=== PATIENT | female | born 1990 | race Two or more races ===

== ENCOUNTER 2023-03-29 12:36 | Emergency (ER) | payer SELFPAY ==
[~2023-03-29] VITALS: Ht 157.5 cm; Wt 71.7 kg
[2023-03-29 14:16] LABS: Urine Amorphous Crystal FEW /hpf (None Seen); Urine Bacteria FEW /hpf (None Seen); Urine Blood Negative /uL (Negative); Urine Clarity HAZY (Clear); Urine Color Yellow (Yellow); Urine Mucus FEW (None Seen); Urine Protein, UAD Negative (Negative); Urine Specific Gravity 1.022 (1.001-1.035); Urine Urobilinogen Normal (Negative); Urine WBC 5 /hpf (0 - 5); Urine pH 6.5 (5.0-8.0)
[2023-03-29 15:26] LABS: Albumin 4.3 g/dL (3.2-4.8); Alkaline Phosphatase 62 U/L (46-116); Anion Gap 6 (5-15); Aspartate Aminotransferase 9 U/L (13-40); BUN/Creatinine Ratio 13.5 (10.0-20.0); Bilirubin, Total 0.3 mg/dL (0.2-1.0); Blood Urea Nitrogen 7 mg/dL (9-23); Calcium 9.3 mg/dL (8.7-10.4); Carbon Dioxide 24 mmol/L (20-30); Chloride 105 mmol/L (98-107); Glucose 76 mg/dL (74-106); Lipase 49 U/L (12-53); Potassium 4.4 mmol/L (3.5-5.1); Sodium 135 mmol/L (136-145); Total Protein 6.7 g/dL (5.7-8.2)
[2023-03-29 15:28] LABS: Alanine Aminotransferase < 9 U/L (7-40)
[2023-03-29 15:29] LABS: Hematocrit 38.2 % (36.0-46.0); Hemoglobin 12.7 g/dL (12.2-16.2); Mean Corpuscular Hemoglobin 30.7 pg (28.0-32.0); Mean Corpuscular Hgb Conc. 33.2 g/dL (32.0-36.0); Mean Corpuscular Volume 92.4 fL (80.0-100.0); Red Blood Cells 4.13 10^6/uL (4.0-5.20); Red Cell Distribution Width 13.5 % (11.8-14.3); White Blood Cell 9.4 10^3/uL (4.4-10.8)
[2023-03-29 15:33] LABS: Basophils % (manual) 0 (0.0-2.0); Blast Cells 0; Metamyelocytes % 0; Myelocytes % 0; Promyelocytes % 0; Reactive Lymphocytes 0
[2023-03-29 15:41] VITALS: BP 110/54; PULSE 98; RESP 18; TEMP 98.1; O2SAT 100
[2023-03-29 16:08] LABS: Band Neutrophils % (manual) 7; Eosinophils % (manual) 1 (0-7); Lymphocytes % (manual) 19 (10.0-50.0); Monocytes % (manual) 2 (0-12); Platelet Estimate Adequate
== END 2023-03-29 15:42 | disposition home or self-care (01) ==
LOC: EDBD 12:36 → ER 12:36
DX: O26.892 Other specified pregnancy related conditions, second trimester (principal); R10.2 Pelvic and perineal pain; R10.12 Left upper quadrant pain; Z3A.20 20 weeks gestation of pregnancy
CPT/HCPCS: 36415; 76805; 80053; 81001; 81025; 83690; 84702; 85007; 85027

== ENCOUNTER 2023-07-26 06:55 | Inpatient (IN) | payer MEDICAID ==
[2023-07-26] VITALS (9 sets, daily range): BP systolic 91–107; BP diastolic 51–63; PULSE 72–115; RESP 16–18; TEMP 96.7–98; O2SAT 95–99
[~2023-07-26] VITALS: Ht 157.5 cm; Wt 81.2 kg
[2023-07-26] MEDS ORDERED: LACTATED RINGER'S 1,000 ML IV SCH ×2 (08:00→11:45)
[2023-07-26] MEDS: LACTATED RINGER'S 1,000 ML IV ONE ×2 (08:32→19:34)
[2023-07-26 08:34] LABS: Basophils # (auto) 0 10 ^3/uL (0-0.2); Basophils % (auto) 0.4 % (0.0-2.0); Eosinophils # (auto) 0 10 ^3/uL (0-0.8); Eosinophils % (auto) 0.4 % (0.0-7.0); Hematocrit 33.9 % (36.0-46.0); Hemoglobin 11.4 g/dL (12.2-16.2); Lymphocytes # (auto) 1.5 10 ^3/uL (0.4-5.4); Lymphocytes % (auto) 18.6 % (10.0-50.0); Mean Corpuscular Hemoglobin 28.6 pg (28.0-32.0); Mean Corpuscular Hgb Conc. 33.7 g/dL (32.0-36.0); Mean Corpuscular Volume 84.8 fL (80.0-100.0); Monocytes # (auto) 0.6 10 ^3/uL (0-1.3); Monocytes % (auto) 7.3 % (0.0-12.0); Neutrophils # (auto) 5.8 10 ^3/uL (1.6-8.6); Neutrophils % (auto) 73.3 % (37.0-80.0); Red Cell Distribution Width 14.5 % (11.8-14.3); White Blood Cell 7.9 10^3/uL (4.4-10.8)
[2023-07-26 08:50] LABS: Urine Bacteria FEW /hpf (None Seen); Urine Blood Negative /uL (Negative); Urine Clarity Turbid (Clear); Urine Color Light-Orange (Yellow); Urine Mucus FEW (None Seen); Urine Protein, UAD TRACE (Negative); Urine Specific Gravity 1.017 (1.001-1.035); Urine Urobilinogen Normal (Negative); Urine WBC 10 /hpf (0 - 5)
[2023-07-26 08:54] LABS: Alanine Aminotransferase 40 U/L (7-40); Aspartate Aminotransferase 34 U/L (13-40); Bilirubin, Total 0.5 mg/dL (0.2-1.0); Total Protein 6.4 g/dL (5.7-8.2)
[2023-07-26 08:55] LABS: Chloride 107 mmol/L (98-107); Sodium 136 mmol/L (136-145)
[2023-07-26 08:57] LABS: Anion Gap 5 (5-15); Carbon Dioxide 24 mmol/L (20-30)
[2023-07-26 08:58] LABS: Calcium 9.4 mg/dL (8.5-10.1)
[2023-07-26 09:03] LABS: Alkaline Phosphatase 172 U/L (46-116); BUN/Creatinine Ratio 10.9 (10.0-20.0); Blood Urea Nitrogen 7 mg/dL (9-23); Glucose 80 mg/dL (74-106)
[2023-07-26 09:07] LABS: INR 0.92 (0.9-1.15); Partial Thromboplastin Time 24.8 SEC (24.5-34.5); Prothrombin Time 9.8 sec (9.3-11.8)
[2023-07-26] MEDS: ceFAZolin 2 GM/D5W50ml 50 ML IV ONE (12:16)
[2023-07-26] MEDS ORDERED: fentaNYL CITRATE 100 MCG/2 ML VL ONE (13:00)
[2023-07-26] MEDS ORDERED: MORPHINE SULF PF 5 MG/10 ML VIAL ONE (13:00)
[2023-07-26] MEDS ORDERED: ePHEDrine SULFATE 50 MG/ML AMP ONE (13:12)
[2023-07-26] MEDS ORDERED: PHENYLEPHRINE HCL 10 MG/ML VL ONE (13:12)
[2023-07-26] MEDS ORDERED: OXYTOCIN 10UNIT/ML 1ML VIAL ONE ×2 (13:17→13:26)
[2023-07-26] MEDS ORDERED: NALOXONE HCL 0.4 MG/ML VIAL IV PRN (14:15)
[2023-07-26] MEDS ORDERED: ONDANSETRON HCL 4 MG/2 ML VIAL IV PRN ×2 (14:15→17:15)
[2023-07-26] MEDS ORDERED: HYDROmorphone HCL 2 MG/ML VL/or syr IV PRN (14:15)
[2023-07-26] MEDS ORDERED: diphenhdrAMINE HCL 50 MG/1 ML VL IV PRN (14:15)
[2023-07-26] MEDS: KETOROLAC TROMETH 30 MG/ML 1ML VIAL IV PRN (16:16)
[2023-07-26] MEDS ORDERED: ACETAMINOPHEN IV 1000 MG/100ML (10MG/ML) IV PRN (17:00)
[2023-07-26] MEDS: ACETAMINOPHEN IV 1000 MG/100ML (10MG/ML) IV PRN (18:30)
[2023-07-26 18:31] LABS: Basophils # (auto) 0 10 ^3/uL (0-0.2); Basophils % (auto) 0.3 % (0.0-2.0); Eosinophils # (auto) 0 10 ^3/uL (0-0.8); Eosinophils % (auto) 0.1 % (0.0-7.0); Hematocrit 32.2 % (36.0-46.0); Hemoglobin 10.9 g/dL (12.2-16.2); Lymphocytes # (auto) 1.1 10 ^3/uL (0.4-5.4); Lymphocytes % (auto) 9.8 % (10.0-50.0); Mean Corpuscular Hemoglobin 28.3 pg (28.0-32.0); Mean Corpuscular Hgb Conc. 33.8 g/dL (32.0-36.0); Mean Corpuscular Volume 83.6 fL (80.0-100.0); Monocytes # (auto) 0.6 10 ^3/uL (0-1.3); Monocytes % (auto) 5.4 % (0.0-12.0); Neutrophils # (auto) 9.1 10 ^3/uL (1.6-8.6); Neutrophils % (auto) 84.4 % (37.0-80.0); Nucleated Red Blood Cells % 0.1 %; Red Blood Cells 3.85 10^6/uL (4.0-5.20); Red Cell Distribution Width 14.2 % (11.8-14.3); White Blood Cell 10.8 10^3/uL (4.4-10.8)
[2023-07-26] MEDS ORDERED: CEPH500C PO (19:25)
[2023-07-26] MEDS ORDERED: HYDR-4902 PO (19:25)
[2023-07-26] MEDS ORDERED: IBUP-1455 PO (19:25)
[2023-07-26] MEDS: ceFAZolin 1GM/50ML 50 ML IV SCH (19:43)
[2023-07-27] VITALS (18 sets, daily range): BP systolic 97–113; BP diastolic 43–88; PULSE 85–108; RESP 16–18; TEMP 97.7–98.4; O2SAT 94–97
[2023-07-27] MEDS: LACTATED RINGER'S 1,000 ML IV SCH (01:03)
[2023-07-27 06:05] LABS: Basophils # (auto) 0 10 ^3/uL (0-0.2); Basophils % (auto) 0.2 % (0.0-2.0); Eosinophils # (auto) 0 10 ^3/uL (0-0.8); Eosinophils % (auto) 0.4 % (0.0-7.0); Hematocrit 28.9 % (36.0-46.0); Hemoglobin 9.8 g/dL (12.2-16.2); Lymphocytes % (auto) 12.8 % (10.0-50.0); Mean Corpuscular Hemoglobin 28.6 pg (28.0-32.0); Mean Corpuscular Hgb Conc. 33.8 g/dL (32.0-36.0); Mean Corpuscular Volume 84.5 fL (80.0-100.0); Monocytes # (auto) 0.7 10 ^3/uL (0-1.3); Monocytes % (auto) 8.5 % (0.0-12.0); Neutrophils # (auto) 6.1 10 ^3/uL (1.6-8.6); Neutrophils % (auto) 78.1 % (37.0-80.0); Nucleated Red Blood Cells % 0.1 %; Red Blood Cells 3.41 10^6/uL (4.0-5.20); Red Cell Distribution Width 14.1 % (11.8-14.3); White Blood Cell 7.8 10^3/uL (4.4-10.8)
[2023-07-27 07:07] LABS: RPR Non Reactive (Non Reactive)
[2023-07-27] MEDS: HYDROcodone-ACET 5/325MG TAB PO PRN (11:38)
[2023-07-27] MEDS: HYDROcodone-ACET 10/325MG TAB PO PRN (15:54)
[2023-07-27] MEDS: IBUPROFEN 800 MG TAB PO ONE (21:31)
[2023-07-27] MEDS: IBUPROFEN 800 MG TAB PO PRN (21:31)
[2023-07-27] MEDS: SIMETHICONE 80 MG CHEWABLE TABLET PO SCH (22:00)
[2023-07-27] MEDS: DOCUSATE SOD 100 MG CAP PO SCH (22:00)
[2023-07-28 03:00] VITALS: BP 100/60; PULSE 89; RESP 16; TEMP 98; O2SAT 98
[2023-07-28 07:08] LABS: Basophils # (auto) 0 10 ^3/uL (0-0.2); Basophils % (auto) 0.3 % (0.0-2.0); Eosinophils # (auto) 0.1 10 ^3/uL (0-0.8); Eosinophils % (auto) 0.5 % (0.0-7.0); Hematocrit 31.1 % (36.0-46.0); Hemoglobin 10.7 g/dL (12.2-16.2); Lymphocytes # (auto) 1.4 10 ^3/uL (0.4-5.4); Lymphocytes % (auto) 13.5 % (10.0-50.0); Mean Corpuscular Hemoglobin 29.1 pg (28.0-32.0); Mean Corpuscular Hgb Conc. 34.2 g/dL (32.0-36.0); Monocytes # (auto) 0.7 10 ^3/uL (0-1.3); Neutrophils # (auto) 8.1 10 ^3/uL (1.6-8.6); Neutrophils % (auto) 78.7 % (37.0-80.0); Red Blood Cells 3.66 10^6/uL (4.0-5.20); Red Cell Distribution Width 14.5 % (11.8-14.3); White Blood Cell 10.3 10^3/uL (4.4-10.8)
[2023-07-28 07:30] VITALS: BP 86/55; PULSE 86; RESP 16; TEMP 98; O2SAT 97
[2023-07-28 10:30] VITALS: BP 99/60; PULSE 72; RESP 18; TEMP 98; O2SAT 97
[2023-07-28 12:50] VITALS: TEMP 98.3
[2023-07-29 19:06] LABS: Treponema pallidum Ab (FTA-Ab) Non Reactive (Non Reactive)
[2023-07-30] MEDS ORDERED: LACTATED RINGER'S 1,000 ML IV SCH (08:00)
== END 2023-07-28 12:50 | disposition home or self-care (01) | DRG 540 ==
LOC: LDRP 06:55 → OBSVTOIN 11:50 → LDRP 13:17
PROVIDERS: ADMIT Obstetrics & Gynecology; ATTEND Obstetrics & Gynecology
PROC: 10D00Z1 Extraction of Products of Conception, Low, Open Approach (ICD-10-PCS; principal; 2023-07-26 12:57)
DX: O34.211 Maternal care for low transverse scar from previous cesarean delivery (principal); Z37.0 Single live birth; Z3A.37 37 weeks gestation of pregnancy
CPT/HCPCS: 36415; 59025; 80053; 81001; 81002; 85025; 85610; 85730; 86592; 86803; 86850; 86900; 86901; 94760; 94762; 96360; 96361; G0378; J0131; J1885